=== PATIENT | female | born 1950 | race Caucasian/White ===

== ENCOUNTER 2024-07-30 14:50 | Emergency (ER) | payer MEDICAID ==
[~2024-07-30] VITALS: Ht 162.6 cm; Wt 81.6 kg
[2024-07-30 15:09] VITALS: BP 109/59; PULSE 98; RESP 16; TEMP 97.7; O2SAT 98
[2024-07-30] MEDS ORDERED: CEPH-588 PO (16:25)
[2024-07-30] MEDS ORDERED: IBUP-2213 PO (16:25)
[2024-07-30 16:30] VITALS: BP 109/59; PULSE 98; RESP 16; TEMP 97.7; O2SAT 98
== END 2024-07-30 16:38 | disposition home or self-care (01) ==
LOC: MED 14:50
DX: L03.116 Cellulitis of left lower limb (principal); E11.9 Type 2 diabetes mellitus without complications; I10 Essential (primary) hypertension; Z98.890 Other specified postprocedural states
CPT/HCPCS: 99283